=== PATIENT | male | born 1995 | race Caucasian/White ===

== ENCOUNTER 2025-02-12 07:58 | Emergency (ER) | payer OTHER, SELFPAY ==
[2025-02-12 07:59] VITALS: BP 166/97; PULSE 79; RESP 18; TEMP 36.2; O2SAT 100
--- NOTE | 2025-02-12 08:00 | DI.CT_ITS ---
Exam(s) CT CERVICAL SPINE WO EXAM: CT CERVICAL SPINE WO CLINICAL HISTORY: neck pain. 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 Other di sc spaces exhibit normal height although anterior osseous lipping at C5-6 level is noted indicating e lement of degenerative disc disease.. There is no evidence of acute fracture. No significant prevertebral soft tissue swelling. No significant listhesis. No cervical ribs. No significant facet arthropathy and no facet malalignment evident. No significant osseous lesions evident. Incidental note of a lung bulla in the right lung apex noted. IMPRESSION: No evidence of cervical spine fracture, malalignment, nor acute compromise of the cervical spinal can al. 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 Called by myself to ER provider 02/12/2025 at 9:20 a.m. RADIATION DOSE DELIVERED: 481.95mGy.cm Total DLP DATA REPOSITORY: All CT scans at this facility are submitted to the National Radiology Data Registry (NRDR) Dose Index Registry (DIR) with the [employer] ([employer]). RADIATION OPTIMIZATION: All CT scans at this facility use at least one of these dose optimization te chniques: automated exposure control; mA and/or kV adjustment per patient size (includes targeted exa ms where dose is matched to clinical indication); or iterative reconstruction.
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
--- NOTE | 2025-02-12 09:14 | DI.RAD_ITS ---
Exam(s) XR KNEE RT 3V AP,LAT,AUSTEN EXAM: XR KNEE RT 3V AP,LAT,AUSTEN CLINICAL HISTORY: R knee pain. TECHNIQUE: 2D digital imaging was performed. COMPARISON: No exams were available for comparison FINDINGS: Three views No evidence of fracture nor prominent joint effusion. Bone density normal. No osseous lesions nor o steochondral defects evident. No joint space narrowing IMPRESSION: No acute osseous findings in the knee. DATA REPOSITORY: RADIATION DOSE DELIVERED:
[2025-02-12 09:51] VITALS: BP 148/72; PULSE 82; RESP 18; O2SAT 95
== END 2025-02-12 09:52 | disposition home or self-care (01) ==
PROVIDERS: Emergency Provider Physician Assistant
DX: M54.2 Cervicalgia (principal); M25.561 Pain in right knee; V49.3XXA Car occupant (driver) (passenger) injured in unspecified nontraffic accident, initial encounter
CPT/HCPCS: 99284 ×2; 73562; 72125